=== PATIENT | male | born 1995 | race African-American/Black ===

== ENCOUNTER 2018-01-08 03:49 | Emergency (ER) | payer SELFPAY ==
[2018-01-08] MEDS ORDERED: LORazepam INJ* 2 MG/ML 1 ML VIAL IV ONE (03:50)
[2018-01-08] MEDS ORDERED: NS 0.9% 1000 ML* 1,000 ML IV ONE (03:50)
[2018-01-08] MEDS ORDERED: Haloperidol INJ IV/IM* 5 MG/ML AMP IM ONE (04:10)
[2018-01-08] MEDS ORDERED: diPHENhydraMINE IV* 50 MG/ML 1 ml VIAL (BENADRYL) IM ONE (04:11)
[2018-01-08] MEDS ORDERED: LORazepam INJ* 2 MG/ML 1 ML VIAL IM ONE (04:11)
[2018-01-08 04:34] LABS: Urine Appearance Clear; Urine Blood Negative (Negative); Urine Color Colorless; Urine Ketones Negative (Negative); Urine Protein Negative (Negative); Urine Specific Gravity 1.001 (1.010-1.030); Urine Urobilinogen Negative (Negative)
[2018-01-08 04:36] LABS: ABS Basophils 0.1 10^3/ul (0-0.2); ABS Eosinophils 0 10^3/ul (0-0.6); ABS Lymphocytes 1.6 10^3/ul (1.0-4.8); ABS Monocytes 0.4 10^3/ul (0-0.8); ABS Neutrophils 4.3 10^3/ul (1.5-7.7); ABS Nucleated RBC 0 10^3/ul; Eosinophil % 0.4 % (0-6); Hematocrit 45 % (42-52); Hemoglobin 15.2 g/dl (14.0-18.0); Lymphocyte % 24.8 % (25-47); Mean Corpuscular HGB Conc 34 g/dl (31-36); Mean Corpuscular Hemoglobin 31 pg (27-31); Mean Corpuscular Volume 93 fL (80-94); Mean Platelet Volume 9 um3 (7.4-10.4); Nucleated Red Blood Cells % 0.1; Platelet Count 202 10^3/ul (150-450); Red Blood Count 4.86 10^6/ul (4.0-5.4); Red Cell Distribution Width 13 % (10.5-15); White Blood Count 6.4 10^3/ul (3.5-10.8)
[2018-01-08 04:39] LABS: EGFR Non-African American 79.5 (>60)
[2018-01-08 08:51] VITALS: BP 122/78
--- NOTE | 2018-01-08 20:48 | ED ---
Inder Kruse Jason, scribed for Cary Galloway MD on 01/08/18 at 0745 . Progress - Progress Note Progress Note: This patient was signed out from Dr. Zaragoza, pending disposition, awaiting stabilization from alcohol intoxication. The patients condition is stable and will be discharged home with Dx of EtOH intoxication. Re-Evaluation - Re-Evaluation First Eval Re-Evaluation Time: 08:35 Change: Improved Comment: Patient is ambulatory to the bathroom without assistance, coherent, clinically sober, and stable for discharge. Course/Dx - Diagnoses Provider Diagnoses: Alcohol intoxication The documentation as recorded by the Inder goldstein Jason accurately reflects the service I personally performed and the decisions made by , Cary Galloway MD.
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
== END 2018-01-08 08:46 | disposition home or self-care (01) ==
LOC: ED 03:49
DX: F10.129 Alcohol abuse with intoxication, unspecified (principal)
CPT/HCPCS: 36415; 80053; 80307; 80320; 80329; 81003; 82550; 84443; 85025; 96360; 96372; 99283; G0480; J2060

== ENCOUNTER 2019-02-13 18:33 | Emergency (ER) | payer BC, OTHER ==
[2019-02-13 20:07] VITALS: BP 135/83
--- NOTE | 2019-02-13 20:15 | UC ---
Knee Pain HPI - HPI Summary HPI Summary: 23 yo male presents with LEFT knee pain. He tells me that he has had two significant injuries to his left knee and has had two surgeries and has screws in his knee. Over the last 1-2 months he has been going to the gym more often and has been noticing that his left knee is hurting more following this. He has had no new injury. He has tried to refrain from going to the gym, but this only improves the discomfort a little. Pain is there at all times, but worse with ambulating/weight bearing. He has been taking tylenol/ibuprofen for discomfort with no relief and is requesting something stronger today. He denies numbness or tingling. He is currently ambulatory without assistance or limp. He is also asking for a refill of his Propecia while he is trying to establish with a local PCP - History of Current Complaint Chief Complaint: UCLowerExtremity Stated Complaint: KNEE PAIN Time Seen by Provider: 02/13/19 20:15 Hx Obtained From: Patient Onset/Duration: Gradual Onset Severity Initially: Moderate Severity Currently: Moderate Pain Intensity: 5 Pain Scale Used: 0-10 Numeric - Allergies/Home Medications Allergies/Adverse Reactions: Allergies Allergy/AdvReac Type Severity Reaction Status Date / Time No Known Allergies Allergy Verified 02/13/19 20:07 PMH/Surg Hx/FS Hx/Imm Hx - Additional Past Medical History Additional PMH: Hair loss - Surgical History Surgical History: Yes Surgery Procedure, Year, and Place: Lt -MMT & KNEE CAP REPAIR. WISDOM TEETH REMOVED - Family History Known Family History: Positive: None - Social History Lives: With Family Alcohol Use: None Substance Use Type: None Smoking Status (MU): Never Smoked Tobacco Review of Systems All Other Systems Reviewed And Are Negative: Yes Constitutional: Positive: Negative Skin: Positive: Negative Respiratory: Positive: Negative Cardiovascular: Positive: Negative Neurovascular: Positive: Negative Musculoskeletal: Positive: Other: - Left knee pain Neurological: Positive: Negative Psychological: Positive: Negative Physical Exam - Summary Physical Exam Summary: GENERAL: NAD. WDWN. No pain distress. SKIN: Surgical scars to left knee. CHEST: No accessory muscle use. Breathing comfortably and in no distress. CV: . Pulses intact popliteal, PT, and DP. Cap refill <2seconds MSK: LEFT KNEE. NTTP. FROM. Strength 5/5. No edema or obvious bony deformities. No patella apprehension. Negative [place], A/P drawer, Sheila, and varus/ valgus stress. NEURO: Alert. Sensations intact and symmetric B/L LEs PSYCH: Age appropriate behavior. Triage Information Reviewed: Yes Vital Signs: Initial Vital Signs Temp 98.6 F 02/13/19 20:03 Pulse 69 02/13/19 20:03 Resp 18 02/13/19 20:03 BP 135/83 02/13/19 20:03 Pulse Ox 100 02/13/19 20:03 Vital Signs Reviewed: Yes Knee Pain Course/Dx - Course Course Of Treatment: XR: No radiologist reading after 1800, therefore wet read by myself is negative for acute process. Post surgical changes. Discussed, at length, with pt about following up with Orthopedics given his hx of knee injuries and two surgeries. Will refer him to Orthopedics locally as his surgeries were not local. He is again asking for pain medication as tylenol and ibuprofen are not helping, again I encouraged him to follow up with Orthopedics and continue to rest his knee. Offered crutches or a cane today, but he declined. Will do a one time refill his Propecia for a 30 day supply in order for him to establish with a local PCP. - Differential Dx/Diagnosis Provider Diagnosis: Knee pain, left Discharge - Sign-Out/Discharge Documenting (check all that apply): Patient Departure All imaging exams completed and their final reports reviewed: No - Discharge Plan Condition: Stable Disposition: HOME Prescriptions: Finasteride [Propecia] 1 mg PO DAILY WITH MEAL #14 tablet Patient Education Materials: Knee Pain (ED) Referrals: No Primary Care Phys,NOPCP [Primary Care Provider] - Ashwini Looney MD [Medical Doctor] - As Soon As Possible Additional Instructions: If you develop a fever, shortness of breath, chest pain, new or worsening symptoms - please call your PCP or go to the ED. Your X-Ray appears normal today, but does have a lot of expected post-surgical changes. Please rest and apply ice to your knee as much as possible. Try a knee brace for support and to help with your pain. I strongly recommend that you call Orthopedics at the number below to schedule an appointment regarding your knee pain and history of surgeries/injuries. - Billing Disposition and Condition Condition: STABLE Disposition: Home
--- NOTE | 2019-02-14 13:00 | UC ---
- Progress Note Progress Note: RADIOLOGY REPORT REVIEWED. No fracture of the left knee is present. NO CHANGE IN MGMT. Course/Dx - Diagnoses Provider Diagnoses: Knee pain, left Discharge - Sign-Out/Discharge Documenting (check all that apply): Post-Discharge Follow Up All imaging exams completed and their final reports reviewed: Yes - Discharge Plan Condition: Stable Disposition: HOME Prescriptions: Finasteride [Propecia] 1 mg PO DAILY WITH MEAL #14 tablet Patient Education Materials: Knee Pain (ED) Referrals: Ashwini Looney MD [Medical Doctor] - As Soon As Possible No Primary Care Phys,NOPCP [Primary Care Provider] - Additional Instructions: If you develop a fever, shortness of breath, chest pain, new or worsening symptoms - please call your PCP or go to the ED. Your X-Ray appears normal today, but does have a lot of expected post-surgical changes. Please rest and apply ice to your knee as much as possible. Try a knee brace for support and to help with your pain. I strongly recommend that you call Orthopedics at the number below to schedule an appointment regarding your knee pain and history of surgeries/injuries. - Billing Disposition and Condition Condition: STABLE Disposition: Home
== END 2019-02-13 21:00 | disposition home or self-care (01) ==
LOC: UCEAST 18:33
DX: M25.562 Pain in left knee (principal)
CPT/HCPCS: 99211; G0463